=== PATIENT | male | born 1985 | race Caucasian/White ===

== ENCOUNTER 2020-09-27 14:52 | Emergency (ER) | payer OTHER, BC ==
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
--- NOTE | 2020-09-28 07:17 | CR ---
Left shoulder: 3 views of the left shoulder were obtained. Comparison: No prior shoulder exam is available. Glenohumeral joint appears within normal limits. Distal clavicle is minimally elevated and difficult to exclude minimal acromioclavicular separation. Small bone island is noted within the humeral head. No acute fracture or other abnormality is appreciated. Impression: 1. Distal clavicle is slightly elevated and difficult to exclude minimal acromioclavicular separation. 2. Nothing acute is otherwise seen on 3 view left shoulder study. Diagnostic code #2
== END 2020-09-27 16:23 | disposition home or self-care (01) ==
LOC: JD.ED 14:52
DX: S40.212A Abrasion of left shoulder, initial encounter (principal); S70.212A Abrasion, left hip, initial encounter; V29.9XXA Motorcycle rider (driver) (passenger) injured in unspecified traffic accident, initial encounter
CPT/HCPCS: 73030-26-LT; 73030-LT; 99282; 99284-25